=== PATIENT | female | born 2000 | race Hispanic/Latino ===

== ENCOUNTER 2022-02-22 17:06 | Emergency (ER) | payer OTHER ==
[2022-02-22] MEDS ORDERED: Lidocaine 1% PF 5 ML VIAL ONE ×2 (18:03→18:17)
[2022-02-22] MEDS ORDERED: HYDROcodone/Acetaminophen 5/325 mg Tablet ONE (18:40)
[2022-02-22] MEDS ORDERED: Bacitracin 1 PK ONE (19:30)
== END 2022-02-22 19:38 | disposition home or self-care (01) ==
LOC: BURERS 17:06
DX: S62.522A Displaced fracture of distal phalanx of left thumb, initial encounter for closed fracture (principal); S61.112A Laceration without foreign body of left thumb with damage to nail, initial encounter; X58.XXXA Exposure to other specified factors, initial encounter
CPT/HCPCS: 11760